=== PATIENT | male | born 1970 | race Caucasian/White ===

== ENCOUNTER 2018-04-22 07:23 | Day surgery (SDC) | payer OTHER ==
[2018-04-22] MEDS ORDERED: SOD CHLORIDE 0.9% 1,000 ML IV (08:00)
[2018-04-22] MEDS: CEFAZOLIN 1 GM/50 ML (PMX) 50 ML IVPB ×2 (09:40→10:00)
[2018-04-22] MEDS: POLYMYXIN/BACITRACIN 1L IRRIG IRR (10:35)
[2018-04-22] MEDS: FENTAnyl 50 MCG/ML VIAL (10:36)
[2018-04-22] MEDS: MIDAZOLAM 1 MG/ML 2 ML INJ (10:36)
[2018-04-22] MEDS: LIDOCAINE 1%/EPI 30 ML INJ (10:38)
[2018-04-22] MEDS: HEPARIN 1000 UNITS/ML 10 ML INJ (10:45)
[2018-04-22] MEDS ORDERED: HYDROCODONE/APAP (5/325) TAB PO (11:30)
== END 2018-04-22 13:30 | disposition home or self-care (01) ==
LOC: SDS 07:23
DX: C91.10 Chronic lymphocytic leukemia of B-cell type not having achieved remission (principal)
CPT/HCPCS: 36561; 76942